=== PATIENT | female | born 1980 | race Caucasian/White ===

== ENCOUNTER 2021-11-17 21:06 | Emergency (ER) | payer OTHER ==
[~2021-11-17 21:06] MED LIST: KEFLEX CAP 500500 MG PO; METFORMIN HCL500 M2 PO; NICOTINE PATCH1 EAC1 TD; PAROXETINE HCL10 MG PO; POTASSIUM CHLO20 ME1 PO; PYRIDIUM100 MG PO; SUBOXONE 8 MG-1 EACH SL; SUCRALFATE1 GM/10 ML PO; TAB-A-VITE1 EACH PO; VITAMIN B-1100 M1 PO; ZOFRAN ODT 4 MG4 MG PO; ZYVOX600 MG PO
[2021-11-17 22:36] LABS: HEMOGLOBIN 13.1 gm/dl (12.3-15.3); RED BLOOD COUNT 4.56 M/UL (4.00-5.10); WHITE BLOOD COUNT 9.1 K/UL (4.5-11.0)
[2021-11-17 23:10] LABS: BUN/CREATININE RATIO 17 (0-10)
[2021-11-18] MEDS ORDERED: AUGMENTIN XR 11 EACH PO (00:33)
[2021-11-18] MEDS ORDERED: PERCOCET 5/325 T1 EA PO (00:33)
== END 2021-11-18 00:55 | disposition home or self-care (01) ==
LOC: ER1 21:06
PROVIDERS: Family Medicine
DX: K04.7 Periapical abscess without sinus (principal)
CPT/HCPCS: 70487; 80053; 85025; 85652; 86140; 96365; 99283; Q9967